=== PATIENT | female | born 1960 | race Hispanic/Latino ===

== ENCOUNTER 2021-01-31 07:03 | Observation (INO) | payer OTHER ==
[2021-01-29 16:14] VITALS: BMI 27.3
[2021-01-31] MEDS ORDERED: Famotidine/PF 20 mg/2ml Vial ONE (08:17)
[2021-01-31] MEDS ORDERED: Ketamine 50 MG/ML (10ML VIAL) ONE (08:25)
[2021-01-31] MEDS ORDERED: HYDROmorphone 0.5 MG/0.5 ML SYRINGE ONE (08:25)
[2021-01-31] MEDS ORDERED: Bupivacaine 0.25% HCL 30 ML VIAL ONE (08:28)
[2021-01-31] MEDS ORDERED: EPINEPHrine 1 MG/ML AMP ONE (08:29)
[2021-01-31] MEDS ORDERED: Rocuronium Bromide 10 MG/ML (10ML VIAL) ONE (08:31)
[2021-01-31] MEDS ORDERED: Ondansetron PF 4 MG/2 ML Vial ONE (08:31)
[2021-01-31] MEDS ORDERED: PHENYLEPHRINE-NS 100 MCG/ML 10 ML SYRINGE ONE (08:31)
[2021-01-31] MEDS ORDERED: Dexamethasone 20 MG/5 ML VIAL ONE (08:31)
[2021-01-31] MEDS ORDERED: Lidocaine 1% PF 5 ML VIAL ONE (08:31)
[2021-01-31] MEDS ORDERED: Lidocaine 2% PF 5 ML VIAL ONE (08:31)
[2021-01-31] MEDS ORDERED: PROPOFOL 20 ML ONE (08:32)
[2021-01-31] MEDS ORDERED: Midazolam HCl 2 mg/2 ml Vial ONE (08:32)
[2021-01-31] MEDS ORDERED: Fentanyl 100 MCG/2 ML VIAL ONE ×2 (08:32→11:39)
[2021-01-31] MEDS ORDERED: Glycopyrrolate 0.2 MG/ML 5 ML SYRINGE ONE (09:22)
[2021-01-31] MEDS ORDERED: ePHEDrine Sulfate 50 MG/10 ML VIAL ONE (09:28)
[2021-01-31] MEDS ORDERED: Meperidine HCl/PF 25 MG/ML VIAL ONE (10:50)
[2021-01-31] MEDS ORDERED: HYDROcodone/Acetaminophen 10/325 mg Tablet ONE (13:34)
[2021-01-31] MEDS ORDERED: Acetaminophen 325 MG TAB PO PRN (17:08)
[2021-01-31] MEDS: Morphine 4 MG/ML VIAL SLOW IVP PRN ×3 (17:35→22:13)
[2021-01-31] MEDS: Cyclobenzaprine 10 MG TAB PO PRN (17:36)
[2021-01-31] MEDS ORDERED: Gabapentin 300 MG CAP PO SCH (21:00)
[2021-01-31] MEDS ORDERED: Atorvastatin Calcium 40 MG TAB PO SCH (21:00)
[2021-01-31] MEDS: metFORMIN 500 MG TAB PO SCH (21:17)
[2021-02-01] MEDS: Morphine 4 MG/ML VIAL SLOW IVP PRN ×2 (05:31→12:02)
[2021-02-01 08:03] VITALS: BP 94/54; TEMP 98
[2021-02-01] MEDS: metFORMIN 500 MG TAB PO SCH (09:21)
[2021-02-01] MEDS: Cyclobenzaprine 10 MG TAB PO PRN (09:21)
[2021-02-01] MEDS ORDERED: Gabapentin 300 MG CAP PO SCH (21:00)
[2021-02-01] MEDS ORDERED: metFORMIN 500 MG TAB PO SCH (21:00)
[2021-02-01] MEDS ORDERED: Atorvastatin Calcium 40 MG TAB PO SCH (21:00)
[2021-02-02] MEDS ORDERED: Venlafaxine HCl XR 75 MG CAP PO SCH (09:00)
== END 2021-02-01 13:00 | disposition home or self-care (01) ==
LOC: CSHSDC 07:03 → CSHTELE 17:17
PROVIDERS: ADMIT Orthopaedic Surgery; ATTEND Orthopaedic Surgery
DX: M48.062 Spinal stenosis, lumbar region with neurogenic claudication (principal); M54.50 Low back pain, unspecified; M54.17 Radiculopathy, lumbosacral region
CPT/HCPCS: 36416; 72100; 76000; 96374; G0378; J0171; J0690; J1100; J1170; J2001; J2175; J2250; J2270; J2405; J2704; J3010; S0020; S0028

== ENCOUNTER 2021-02-15 17:29 | Outpatient (CLI) | payer OTHER ==
[2021-02-16 04:02] LABS: SARS-CoV-2 NAA Rapid Test Not Detected (NotDetected)
== END 2021-02-15 17:30 | disposition home or self-care (01) ==
LOC: CSHLAB 17:29
PROVIDERS: ATTEND Orthopaedic Surgery
DX: Z20.822 Contact with and (suspected) exposure to COVID-19 (principal)
CPT/HCPCS: U0002; U0003; U0005

== ENCOUNTER 2021-02-16 06:31 | Inpatient (IN) | payer OTHER ==
[2021-02-16] MEDS ORDERED: Famotidine/PF 20 mg/2ml Vial ONE (06:42)
[2021-02-16] MEDS ORDERED: Bupivacaine 0.25% HCL 30 ML VIAL ONE (07:14)
[2021-02-16] MEDS ORDERED: Lidocaine 1% MPF 2 ML VIAL ONE (07:30)
[2021-02-16] MEDS ORDERED: PROPOFOL 20 ML ONE (08:00)
[2021-02-16] MEDS ORDERED: Fentanyl 100 MCG/2 ML VIAL ONE (08:01)
[2021-02-16] MEDS ORDERED: Lidocaine 2% PF 5 ML VIAL ONE (08:01)
[2021-02-16] MEDS ORDERED: Rocuronium Bromide 10 MG/ML (10ML VIAL) ONE (08:01)
[2021-02-16] MEDS ORDERED: HYDROmorphone 0.5 MG/0.5 ML SYRINGE ONE (08:37)
[2021-02-16] MEDS ORDERED: Ondansetron PF 4 MG/2 ML Vial ONE (08:42)
[2021-02-16] MEDS ORDERED: Dexamethasone 20 MG/5 ML VIAL ONE (08:42)
[2021-02-16] MEDS ORDERED: Ketorolac Tromethamine 30 MG/ML VIAL ONE (08:43)
[2021-02-16] MEDS ORDERED: EPINEPHrine 1 MG/ML AMP ONE (09:11)
[2021-02-16] MEDS ORDERED: Acetaminophen 325 MG TAB PO PRN (10:36)
[2021-02-16] MEDS: HYDROcodone/Acetaminophen 10/325 mg Tablet PO PRN (11:59)
[2021-02-16] MEDS ORDERED: Ondansetron PF 4 MG/2 ML Vial IVP PRN (12:56)
[2021-02-16] MEDS: Morphine 4 MG/ML VIAL SLOW IVP PRN ×3 (14:51→19:27)
[2021-02-16] MEDS: CEFAZOLIN 2 GM in Premix Bag 1 BAG IVPB SCH (14:53)
[2021-02-16] MEDS: metFORMIN 500 MG TAB PO SCH (16:38)
[2021-02-16] MEDS ORDERED: FLU VACC QS2021-22(6MOS UP)/PF 60 MCG/0.5 ML SYRINGE IM ONE (17:45)
[2021-02-16] MEDS: Atorvastatin Calcium 40 MG TAB PO SCH (21:11)
[2021-02-16] MEDS: Pregabalin 75 MG CAP PO SCH (21:11)
[2021-02-16] MEDS: Aspirin 81 mg Enteric Coated Tablet PO SCH (21:11)
[2021-02-16] MEDS: Gabapentin 300 MG CAP PO SCH (21:12)
[2021-02-16] MEDS: Acetaminophen/Codeine 30-300mg Tablet PO PRN (21:12)
[2021-02-17] MEDS: Morphine 4 MG/ML VIAL SLOW IVP PRN ×5 (00:07→20:50)
[2021-02-17] MEDS: CEFAZOLIN 2 GM in Premix Bag 1 BAG IVPB SCH ×2 (00:08→06:19)
[2021-02-17] MEDS: Acetaminophen/Codeine 30-300mg Tablet PO PRN ×3 (04:12→14:31)
[2021-02-17] MEDS: metFORMIN 500 MG TAB PO SCH ×2 (09:25→17:36)
[2021-02-17] MEDS: PARoxetine 20 MG TAB PO SCH (09:26)
[2021-02-17] MEDS: Aspirin 81 mg Enteric Coated Tablet PO SCH ×2 (09:27→20:50)
[2021-02-17] MEDS: Pregabalin 75 MG CAP PO SCH ×2 (09:28→20:49)
[2021-02-17] MEDS ORDERED: TETANUS AND DIPHTHERIA TOX/PF 0.5 ML DISP.SYRIN IM SCH (10:45)
[2021-02-17] MEDS: Atorvastatin Calcium 40 MG TAB PO SCH (20:50)
[2021-02-17] MEDS: Gabapentin 300 MG CAP PO SCH (20:50)
[2021-02-17] MEDS: Ibuprofen 600 MG TAB PO SCH (23:45)
[2021-02-17] MEDS: Cyclobenzaprine 10 MG TAB PO SCH (23:45)
[2021-02-18] MEDS: Ibuprofen 600 MG TAB PO SCH ×4 (03:18→22:19)
[2021-02-18] MEDS: Cyclobenzaprine 10 MG TAB PO SCH ×4 (05:53→22:19)
[2021-02-18] MEDS: metFORMIN 500 MG TAB PO SCH ×2 (09:34→17:24)
[2021-02-18] MEDS: Morphine 4 MG/ML VIAL SLOW IVP PRN ×2 (09:35→17:26)
[2021-02-18] MEDS: PARoxetine 20 MG TAB PO SCH (09:35)
[2021-02-18] MEDS: Pregabalin 75 MG CAP PO SCH ×2 (09:36→22:19)
[2021-02-18] MEDS: Aspirin 81 mg Enteric Coated Tablet PO SCH ×2 (09:36→22:19)
[2021-02-18] MEDS: Gabapentin 300 MG CAP PO SCH (22:18)
[2021-02-18] MEDS: HYDROcodone/Acetaminophen 10/325 mg Tablet PO PRN (22:26)
[2021-02-19] MEDS: Ibuprofen 600 MG TAB PO SCH ×4 (04:00→20:51)
[2021-02-19] MEDS: HYDROcodone/Acetaminophen 10/325 mg Tablet PO PRN ×2 (06:25→11:49)
[2021-02-19] MEDS: Cyclobenzaprine 10 MG TAB PO SCH ×3 (06:25→18:06)
[2021-02-19] MEDS: Atorvastatin Calcium 40 MG TAB PO SCH ×2 (07:46→20:51)
[2021-02-19] MEDS: Morphine 4 MG/ML VIAL SLOW IVP PRN ×3 (09:54→22:03)
[2021-02-19] MEDS: metFORMIN 500 MG TAB PO SCH ×2 (09:55→18:07)
[2021-02-19] MEDS: PARoxetine 20 MG TAB PO SCH (09:56)
[2021-02-19] MEDS: Pregabalin 75 MG CAP PO SCH ×2 (09:56→20:50)
[2021-02-19] MEDS: Aspirin 81 mg Enteric Coated Tablet PO SCH ×2 (09:57→20:50)
[2021-02-19] MEDS: Gabapentin 300 MG CAP PO SCH (20:50)
[2021-02-19] MEDS ORDERED: Docusate 100 MG CAP PO SCH (21:45)
[2021-02-20] MEDS: Cyclobenzaprine 10 MG TAB PO SCH ×5 (00:26→23:17)
[2021-02-20] MEDS: HYDROcodone/Acetaminophen 10/325 mg Tablet PO PRN ×2 (00:40→14:29)
[2021-02-20] MEDS: Ibuprofen 600 MG TAB PO SCH ×4 (03:50→20:55)
[2021-02-20] MEDS: Morphine 4 MG/ML VIAL SLOW IVP PRN ×2 (05:12→17:35)
[2021-02-20] MEDS ORDERED: Mag-Al 1200 mg/1200 mg/30 ML UDCUP PO PRN (07:01)
[2021-02-20] MEDS: metFORMIN 500 MG TAB PO SCH ×2 (08:46→17:30)
[2021-02-20] MEDS: PARoxetine 20 MG TAB PO SCH (08:46)
[2021-02-20] MEDS: Docusate 100 MG CAP PO SCH ×2 (08:46→20:54)
[2021-02-20] MEDS: Aspirin 81 mg Enteric Coated Tablet PO SCH ×2 (08:47→20:54)
[2021-02-20] MEDS: Pregabalin 75 MG CAP PO SCH ×2 (08:47→20:54)
[2021-02-20] MEDS: Atorvastatin Calcium 40 MG TAB PO SCH (20:54)
[2021-02-20] MEDS: Gabapentin 300 MG CAP PO SCH (20:54)
[2021-02-21] MEDS: Ibuprofen 600 MG TAB PO SCH ×2 (03:09→09:34)
[2021-02-21] MEDS: Cyclobenzaprine 10 MG TAB PO SCH (05:31)
[2021-02-21 09:04] VITALS: BP 121/78; TEMP 97.1
[2021-02-21] MEDS: metFORMIN 500 MG TAB PO SCH (09:34)
[2021-02-21] MEDS: Docusate 100 MG CAP PO SCH (09:34)
[2021-02-21] MEDS: Aspirin 81 mg Enteric Coated Tablet PO SCH (09:35)
[2021-02-21] MEDS: PARoxetine 20 MG TAB PO SCH (09:35)
[2021-02-21] MEDS: Pregabalin 75 MG CAP PO SCH (09:36)
== END 2021-02-21 10:10 | disposition home health service (06) | DRG 520 ==
LOC: CSHSDC 06:31 → CSHTELE 10:47 → INTOOBSV 10:47 → OBSVTOIN 02-19 09:22
PROVIDERS: ADMIT Orthopaedic Surgery; ATTEND Orthopaedic Surgery
PROC: 0SB20ZZ Excision of Lumbar Vertebral Disc, Open Approach (ICD-10-PCS; principal; 2021-02-16)
PROC: 01NB0ZZ Release Lumbar Nerve, Open Approach (ICD-10-PCS; 2021-02-16)
DX: M48.061 Spinal stenosis, lumbar region without neurogenic claudication (principal); M51.26 Other intervertebral disc displacement, lumbar region; Z20.822 Contact with and (suspected) exposure to COVID-19
CPT/HCPCS: 36416; 72100; 76000; 94760; 96374; 96375; 96376; C1889; G0378; J0171; J0690; J1100; J1170; J1885; J2001; J2270; J2405; J2704; J3010; S0020; S0028